=== PATIENT | male | born 1990 | race African-American/Black ===

== ENCOUNTER 2020-11-07 00:27 | Inpatient (IN) | payer OTHER ==
[2020-11-07] VITALS (8 sets, daily range): BP systolic 175–223; BP diastolic 115–140
[~2020-11-07] VITALS: Ht 180.3 cm; Wt 147.1 kg
--- NOTE | 2020-11-07 00:53 | PHYS DOC ---
Past Medical History Additional Past Medical Histor: obesity General Adult HPI: HPI: Patient is a 29 year old male with history of obesity who presents with chest pain starting roughly 25 minutes prior to arrival. Patient was getting out of his car and had left-sided chest pain. Sharp. Radiates to the left shoulder. Is not exertional or pleuritic. Not associated with shortness of breath, nausea/vomiting, or diaphoresis. States that he was sweating, but this was due to the heat of the weather. He has never had similar symptoms in the past. No fever/chills, sick contacts. No lower extremity swelling, pain, or redness. No recent surgeries or immobilizations. Is not on any medications currently. Denies any known history of HTN, HLD, DM. No early family history of coronary artery disease to his knowledge. Review of Systems: Review of Systems: Constitutional: Denies fever or chills. [] Eyes: Denies change in visual acuity. [] HENT: Denies nasal congestion or sore throat. [] Respiratory: Denies cough or shortness of breath. [] Cardiovascular: + chest pain. no edema. [] GI: Denies abdominal pain, nausea, vomiting, bloody stools or diarrhea. [] : Denies dysuria. [] Musculoskeletal: Denies back pain or joint pain. [] Integument: Denies rash. [] Neurologic: Denies headache, focal weakness or sensory changes. [] Endocrine: Denies polyuria or polydipsia. [] Lymphatic: Denies swollen glands. [] Psychiatric: Denies depression or anxiety. [] Heart Score: C/O Chest Pain: Yes HEART Score for Chest Pain: HEART Score for Chest Pain Response (Comments) Value History Slighlty/Non-Suspicious 0 ECG Nonspecific Repolarizatio 1 Age < 45 0 Risk Factors 1 or 2 Risk Factors 1 Total 2 Risk Factors: Risk Factors: DM, Current or recent (<one month) smoker, HTN, HLP, family history of CAD, obesity. Risk Scores: Score 0 - 3: 2.5% MACE over next 6 weeks - Discharge Home Score 4 - 6: 20.3% MACE over next 6 weeks - Admit for Clinical Observation Score 7 - 10: 72.7% MACE over next 6 weeks - Early Invasive Strategies Family History: Family History: No pertinent family history. No early history of CAD. Physical Exam: PE: Constitutional: Mildly diaphoretic. Well developed, well nourished, no acute distress, non-toxic appearance. [] HENT: Normocephalic, atraumatic, bilateral external ears normal, oropharynx moist, no oral exudates, nose normal. [] Eyes: PERRLA, EOMI, conjunctiva normal, no discharge. [] Neck: Normal range of motion, no tenderness, supple, no stridor. [] Cardiovascular: Tachycardic. Regular rhythm, no murmur [] Lungs & Thorax: Bilateral breath sounds clear to auscultation [] Abdomen: Bowel sounds normal, soft, no tenderness, no masses, no pulsatile masses. [] Skin: Warm, no erythema, no rash. [] Back: No tenderness, no CVA tenderness. [] Extremities: No tenderness, no cyanosis, no clubbing, ROM intact, no edema. [] Neurologic: Alert and oriented X 3, normal motor function, normal sensory function, no focal deficits noted. [] Psychologic: Affect normal, judgement normal, mood normal. [] EKG: EKG: Sinus rhythm. Rate 110. T wave inversions in 1 and aVL. Biphasic T waves in V6. No acute ST elevation or depression noted. [] Radiology/Procedures: Radiology/Procedures: CXR [] Impression: [facility] [address] [place] [address] IMAGING REPORT Signed PATIENT: IRIS SPEARS ACCOUNT: [id number] : 01/23/1959 LOCATION: ER AGE: 61 SEX: M EXAM STATUS: PRE ER ORD. PHYSICIAN: XIOMARA SAN MD REASON: shortness of breath, volume overload PROCEDURE: CHEST AP ONLY EXAMINATION: Chest radiograph. VIEWS: Single view COMPARISON: None INDICATION:61 years, Male, shortness of breath. FINDINGS: Cardiomegaly. Pulmonary vascular congestion, without overt edema. Small right pleural effusion with right basilar airspace opacity. Subsegmental atelectasis in the left lung base. No pneumothorax. No acute osseous process. IMPRESSION: 1. Cardiomegaly with pulmonary vascular congestion. 2. Small right pleural effusion with right basilar airspace opacity, suggesting of atelectatic changes versus infiltrates. Electronically signed by: Veronica Godinez MD (11/07/2020 12:34 AM) [facility] DICTATED and SIGNED BY: VERONICA GODINEZ MD DATE: 11/07/20 [id number] Course & Med Decision Making: Course & Med Decision Making Pertinent Labs and Imaging studies reviewed. (See chart for details) Patient is a 29-year-old male with history of obesity who presents with acute onset of sharp chest pain radiating to his left arm approximately 25 minutes prior to arrival. On arrival is tachycardic to 110, BP stable. Satting well on room air. Mildly diaphoretic on exam, but coming in from the hot weather. Otherwise well-appearing. EKG with T wave inversions in 1 and aVL, and biphasic T waves in V6 raising concern for ischemia. Prior to troponin heart score is 2. We will check serial troponins to evaluate for ACS. Will check chest x-ray for signs of pneumothorax, pneumonia etc although these seem less likely. Given his tachycardia will check a dimer to evaluate for PE. 0053 Initial troponin elevated to 0.124. Creatinine also elevated to 1.7. Will give IVF, NTG, and ASA 324 mg. Consult placed to cardiology. Dimer still pending at this time. 0145 Repeat EKG shows or convincing ST depressions in 1 and aVL and biphasic T waves extending into V5 more prominent in V6. Still no evidence of STEMI. We will swab for Covid. Discussed with Dr. Benítez of cardiology, who recommends IV heparin infusion, which was ordered. Awaiting remainder of labs. 0153 Dimer +. CTA ordered to eval for PE. 0219 CTA without PE. Does show groundglass opacities bilaterally. Rapid Covid swab is negative, but patient will remain a PUI until PCR is available. 0332 Dragon Disclaimer: Dragon Disclaimer: This electronic medical record was generated, in whole or in part, using a voice recognition dictation system. Departure Departure Impression: Primary Impression: Chest pain Additional Impressions: NSTEMI (non-ST elevated myocardial infarction) Ground glass opacity present on imaging of lung Disposition: ADMITTED INPATIENT Admitting Physician: FATIMAH Maddox) Condition: STABLE XIOMARA SNA MD Nov 07, 2020 00:53
--- NOTE | 2020-11-07 00:58 | EKG ---
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
[2020-11-07 01:20] LABS: BASO # 0.1 x10^3/uL (0.0-0.2); BASO % 1 % (0-3); EOS # 0.1 x10^3/uL (0.0-0.7); EOS % 1 % (0-3); HEMATOCRIT 45.2 % (39.0-53.0); HEMOGLOBIN 14.6 g/dL (13.0-17.5); LYMPH # 2.8 x10^3/uL (1.0-4.8); LYMPH % 25 % (24-48); MEAN CORPUSCULAR HEMOGLOBIN 26 pg (25-35); MEAN CORPUSCULAR HGB CONC 32 g/dL (31-37); MEAN CORPUSCULAR VOLUME 81 fL (79-100); MONO # 0.7 x10^3/uL (0.0-1.1); MONO % 6 % (0-9); NEUT # 7.4 x10^3/uL (1.8-7.7); NEUT % 67 % (31-73); PLATELET COUNT 333 x10^3/uL (140-400); RED CELL DISTRIBUTION WIDTH 14.2 % (11.5-14.5); WHITE BLOOD COUNT 11.1 x10^3/uL (4.0-11.0)
[2020-11-07 01:27] LABS: CALCIUM 9.3 mg/dL (8.5-10.1); CREATININE 1.7 mg/dL (0.7-1.3); GFR 47.9; POTASSIUM 4.1 mmol/L (3.5-5.1)
[2020-11-07 01:33] LABS: ALBUMIN 3.7 g/dL (3.4-5.0); TOTAL BILIRUBIN 1.3 mg/dL (0.2-1.0); TOTAL PROTEIN 7.5 g/dL (6.4-8.2)
--- NOTE | 2020-11-07 01:34 | RAD ---
EXAMINATION: Chest radiograph. VIEWS: Single view COMPARISON: None INDICATION:29 years, Male, chest pain. FINDINGS: Normal cardiomediastinal silhouette. Bilateral perihilar and basilar subtle opacities. No pleural eff usion or pneumothorax. No acute osseous process. IMPRESSION: Bilateral perihilar and basilar subtle opacities. Differential includes atypical pneumonia versus ate lectatic changes. Electronically signed by: Lacho Godinez MD (11/07/2020 1:31 AM) [facility]
[2020-11-07] MEDS ORDERED: NITROGLYCERIN SUBLINGUAL 0.4 MG BOTTLE OF 25. SL PRN (01:45)
--- NOTE | 2020-11-07 01:59 | EKG ---
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
[2020-11-07] MEDS ORDERED: HEPARIN for IV BOLUS 10,000 UNIT/10 ML VIAL. IV PRN (02:00)
[2020-11-07] MEDS ORDERED: ANTI-COAG MONITOR BY PHARMACY. MC PRN (02:00)
[2020-11-07] MEDS ORDERED: ASPIRIN CHEWABLE 81 MG TABLET. PO ONE (02:00)
[2020-11-07] MEDS ORDERED: HEPARIN for IV BOLUS 10,000 UNIT/10 ML VIAL. IV ONE (02:30)
[2020-11-07] MEDS: HEPARIN 25,000UTS/250ML PREMIX 250 ML IV PRN ×2 (02:41→14:30)
[2020-11-07] MEDS ORDERED: CONTRAST GIVEN. MC PRN (02:45)
[2020-11-07] MEDS ORDERED: IOHEXOL 350 MG/ML 100 ML VIAL. IV ONE (03:00)
--- NOTE | 2020-11-07 03:20 | RAD ---
EXAMINATION: CTA Chest With IV contrast INDICATION:29 years, Male, chest pain and elevated d-dimer, evaluate for pulmonary embolism. COMPARISON: None. TECHNIQUE: Spiral CTA was obtained from the jugular notch through the posterior costophrenic recess. 3-D MIPS, sagittal and coronal reformats were obtained. Exposure: One or more of the following individualized dose reduction techniques were utilized for thi s examination: 1. Automated exposure control 2. Adjustment of the mA and/or kV according to patient size 3. Use of iterative reconstruction technique. FINDINGS: LUNGS/PLEURA: Central airways are patent. Left worst than right, lower lobes groundglass opacities. M ultifocal patchy areas of groundglass opacities in the right upper and middle lobes. Tree-in-bud nodu larities in the right upper lobe. Mild interlobular septal thickening in the lower lobes. No pleural effusion or pneumothorax. MEDIASTINUM: Prominent mediastinal and right hilar lymph nodes, likely reactive. The thoracic aorta a nd pulmonary arteries are normal in caliber. No evidence of pulmonary embolism. The heart is normal i n size. No pericardial effusion. No detectable calcified coronary atherosclerosis. The visualized thy roid and the esophagus are unremarkable. AXILLA/SOFT TISSUE: No supraclavicular or axillary adenopathy. Regional soft tissues are within lexa l limits. UPPER ABDOMEN: The visualized upper abdomen appears unremarkable. BONES: No evidence of acute fractures or aggressive osseous lesions. IMPRESSION: 1. No evidence of pulmonary embolism. 2. Left worst than right, lower lobes groundglass opacities with interlobular septal thickening. Joce tional, multifocal patchy areas of groundglass opacities in the right upper and middle lobes. Overall findings suggesting of pulmonary edema versus multifocal pneumonias. Clinical correlation is advised . Electronically signed by: Lacho Godinez MD (11/07/2020 3:17 AM) [facility]
[2020-11-07] MEDS: METOPROLOL IV PUSH 5 MG/5 ML VIAL. IVP PRN ×3 (05:54→18:18)
--- NOTE | 2020-11-07 06:24 | EKG ---
[facility] [address] [place] [address] Test Date: 2020-11-07 Test Time: 00:33:52 Pat Name: KIRILL GRANDE Department: Room: 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
--- NOTE | 2020-11-07 08:27 | PDOC1 ---
History and Physical Date of Admission Date of Admission DATE: 11/07/20 TIME: 08:24 Source Source: Chart review, Patient History of Present Illness History of Present Illness Mr. Mason, is a 29-year-old male admit with acute chest pain last night he was droppign off his daughter, age 7 at her mothers house, , then driving home and had severe acute chest pain. was 9/10 pain, beter now, pain to left chest radiate to arm and maybe neck. better now was tachy and has some flat EKG change, t wave inversions heart score is 2. small troponin increase noted, will admit CT angio neg for PE Past Medical History Past Medical History had not seen a doctor Cardiovascular: No pertinent hx, Other (probable longstanding htn, ) Pulmonary: No pertinent hx Rheumatologic: Fibromyalgia Infectious disease: No pertinent hx Social History Smoke: No ALCOHOL: rare Drugs: None Current Problem List Problem List Problems Medical Problems: (1) Chest pain Status: Acute (2) Ground glass opacity present on imaging of lung Status: Acute (3) NSTEMI (non-ST elevated myocardial infarction) Status: Acute Current Medications Current Medications Current Medications Nitroglycerin (Nitrostat) 0.4 mg PRN Q5MIN PRN SL CHEST PAIN Last administered on 11/07/20at 01:57; Start 11/07/20 at 01:45 Aspirin (Aspirin Chewable) 324 mg 1X ONCE PO Last administered on 11/07/20at 01:57; Start 11/07/20 at 02:00; Stop 11/07/20 at 02:01; Status DC Heparin Sodium (Porcine) (Heparin Sodium) 4,000 unit 1X ONCE IV Last a dministered on 11/07/20at 02:29; Start 11/07/20 at 02:30; Stop 11/07/20 at 02:31; Status DC Heparin Sodium/ Dextrose 250 ml @ 0 mls/hr CONT PRN IV PER PROTOCOL Last administered on 11/07/20at 02:41; Start 11/07/20 at 02:00 Heparin Sodium (Porcine) (Heparin Sodium) 3,150 unit PRN Q6HRS PRN IV FOR UFH LEVEL LESS THAN 0.2; Start 11/07/20 at 02:00 Info (Anti-Coagulation Monitoring By Pharmacy) 1 each PRN DAILY PRN MC PER PROTOCOL Last administered on 11/07/20at 05:12; Start 11/07/20 at 02:00 Iohexol (Omnipaque 350 Mg/ml) 80 ml 1X ONCE IV Last administered on 11/07/20at 03:04; Start 11/07/20 at 03:00; Stop 11/07/20 at 03:01; Status DC Info (CONTRAST GIVEN -- Rx MONITORING) 1 each PRN DAILY PRN MC SEE COMMENTS; Start 11/07/20 at 02:45; Stop 11/09/20 at 02:44 Metoprolol Tartrate (Lopressor Vial) 5 mg PRN Q6HRS PRN IVP SBP>180 Last administered on 11/07/20at 05:54; Start 11/07/20 at 05:00 Amlodipine Besylate (Norvasc) 10 mg DAILY PO ; Start 11/07/20 at 08:00 Active Scripts Active Reported No Known Medications Prior To Admisstion (Info) Each 1 Each MC 1X Allergies Allergies: Coded Allergies: No Known Drug Allergies (Unverified , 11/07/20) ROS General: No: Chills, Night Sweats, Fatigue, Malaise, Appetite, Other PSYCHOLOGICAL ROS: No: Anxiety, Behavioral Disorder, Concentration difficultie, Decreased libido, Depression, Disorientation, Hallucinations, Hostility, Irritablity, Memory difficulties, Mood Swings, Obsessive thoughts, Physical abuse, Sexual abuse, Sleep disturbances, Suicidal ideation, Other Eyes: No Blurry vision, No Decreased vision, No Double vision, No Dry eyes, No Excessive tearing, No Eye Pain, No Itchy Eyes, No Loss of vision, No Photophobia, No Scotomata, No Uses contacts, No Uses glasses, No Other HEENT: No: Heacaches, Visual Changes, Hearing change, Nasal congestion, Nasal discharge, Oral lesions, Sinus pain, Sore Throat, Epistaxis, Sneezing, Snoring, Tinnitus, Vertigo, Vocal changes, Other Respiratory: YES: Cough, SOB with excertion; No: Hemoptysis, Orthopnea, Pleuritic Pain, Shortness of breath, Sputum Changes, Stridor, Tachypnea, Wheezing, Other Cardiovascular: yes Chest Pain; No Palpitations, No Orthopnea, No Paroxysmal Noc. Dyspnea, No Edema, No Lt Headedness, No Other Gastrointestinal: No Nausea, No Vomiting, No Abdominal Pain, No Diarrhea, No Constipation, No Melena, No Hematochezia, No Other Musculoskeletal: No Gait Disturbance, No Joint Pain, No Joint Stiffness, No Joint Swelling, No Muscle Pain, No Muscular Weakness, No Pain In:, No Swelling In:, No Other Neurological: No Behavorial Changes, No Bowel/Bladder ControlChng, No Confusion, No Dizziness, No Gait Disturbance, No Headaches, No Impaired Coord/balance, No Memory Loss, No Numbness/Tingling, No Seizures, No Speech Problems, No Tremors, No Visual Changes, No Weakness, No Other Skin: No Dry Skin, No Eczema, No Hair Changes, No Lumps, No Mole Changes, No Mottling, No Nail Changes, No Pruritus, No Rash, No Skin Lesion Changes, No Other, No Acne Physical Exam General: Alert, Oriented X3, Cooperative, No acute distress HEENT: Atraumatic, PERRLA Lungs: Clear to auscultation Heart: S1S2, RRR Neuro: Normal gait, Normal speech, Sensation intact Psych/Mental Status: Mental status NL, Mood NL Vitals Vitals Vital Signs Date Time Temp Pulse Resp B/P (MAP) Pulse Ox O2 Delivery O2 Flow Rate FiO2 11/07/20 06:19 94 199/126 (150) Room Air 11/07/20 04:45 97.8 22 97 97.8 Labs Labs Laboratory Tests Test 11/07/20 01:05 11/07/20 02:20 White Blood Count 11.1 x10^3/uL (4.0-11.0) Red Blood Count 5.60 x10^6/uL (4.30-5.70) Hemoglobin 14.6 g/dL (13.0-17.5) Hematocrit 45.2 % (39.0-53.0) Mean Corpuscular Volume 81 fL (79-100) Mean Corpuscular Hemoglobin 26 pg (25-35) Mean Corpuscular Hemoglobin Concent 32 g/dL (31-37) Red Cell Distribution Width 14.2 % (11.5-14.5) Platelet Count 333 x10^3/uL (140-400) Neutrophils (%) (Auto) 67 % (31-73) Lymphocytes (%) (Auto) 25 % (24-48) Monocytes (%) (Auto) 6 % (0-9) Eosinophils (%) (Auto) 1 % (0-3) Basophils (%) (Auto) 1 % (0-3) Neutrophils # (Auto) 7.4 x10^3/uL (1.8-7.7) Lymphocytes # (Auto) 2.8 x10^3/uL (1.0-4.8) Monocytes # (Auto) 0.7 x10^3/uL (0.0-1.1) Eosinophils # (Auto) 0.1 x10^3/uL (0.0-0.7) Basophils # (Auto) 0.1 x10^3/uL (0.0-0.2) D-Dimer (Katlyn) 1.49 ug/mlFEU (0.00-0.50) Sodium Level 139 mmol/L (136-145) Potassium Level 4.1 mmol/L (3.5-5.1) Chloride Level 104 mmol/L (98-107) Carbon Dioxide Level 26 mmol/L (21-32) Anion Gap 9 (6-14) Blood Urea Nitrogen 19 mg/dL (8-26) Creatinine 1.7 mg/dL (0.7-1.3) Estimated GFR (Cockcroft-Gault) 47.9 BUN/Creatinine Ratio 11 (6-20) Glucose Level 113 mg/dL (70-99) Calcium Level 9.3 mg/dL (8.5-10.1) Total Bilirubin 1.3 mg/dL (0.2-1.0) Aspartate Amino Transf (AST/SGOT) 29 U/L (15-37) Alanine Aminotransferase (ALT/SGPT) 38 U/L (16-63) Alkaline Phosphatase 110 U/L (46-116) Troponin I Quantitative 0.124 ng/mL (0.000-0.055) Total Protein 7.5 g/dL (6.4-8.2) Albumin 3.7 g/dL (3.4-5.0) Albumin/Globulin Ratio 1.0 (1.0-1.7) SARS-CoV-2 Antigen (Rapid) Negative (NEGATIVE) Laboratory Tests Test 11/07/20 01:05 11/07/20 02:20 White Blood Count 11.1 x10^3/uL (4.0-11.0) Red Blood Count 5.60 x10^6/uL (4.30-5.70) Hemoglobin 14.6 g/dL (13.0-17.5) Hematocrit 45.2 % (39.0-53.0) Mean Corpuscular Volume 81 fL (79-100) Mean Corpuscular Hemoglobin 26 pg (25-35) Mean Corpuscular Hemoglobin Concent 32 g/dL (31-37) Red Cell Distribution Width 14.2 % (11.5-14.5) Platelet Count 333 x10^3/uL (140-400) Neutrophils (%) (Auto) 67 % (31-73) Lymphocytes (%) (Auto) 25 % (24-48) Monocytes (%) (Auto) 6 % (0-9) Eosinophils (%) (Auto) 1 % (0-3) Basophils (%) (Auto) 1 % (0-3) Neutrophils # (Auto) 7.4 x10^3/uL (1.8-7.7) Lymphocytes # (Auto) 2.8 x10^3/uL (1.0-4.8) Monocytes # (Auto) 0.7 x10^3/uL (0.0-1.1) Eosinophils # (Auto) 0.1 x10^3/uL (0.0-0.7) Basophils # (Auto) 0.1 x10^3/uL (0.0-0.2) D-Dimer (Katlyn) 1.49 ug/mlFEU (0.00-0.50) Sodium Level 139 mmol/L (136-145) Potassium Level 4.1 mmol/L (3.5-5.1) Chloride Level 104 mmol/L (98-107) Carbon Dioxide Level 26 mmol/L (21-32) Anion Gap 9 (6-14) Blood Urea Nitrogen 19 mg/dL (8-26) Creatinine 1.7 mg/dL (0.7-1.3) Estimated GFR (Cockcroft-Gault) 47.9 BUN/Creatinine Ratio 11 (6-20) Glucose Level 113 mg/dL (70-99) Calcium Level 9.3 mg/dL (8.5-10.1) Total Bilirubin 1.3 mg/dL (0.2-1.0) Aspartate Amino Transf (AST/SGOT) 29 U/L (15-37) Alanine Aminotransferase (ALT/SGPT) 38 U/L (16-63) Alkaline Phosphatase 110 U/L (46-116) Troponin I Quantitative 0.124 ng/mL (0.000-0.055) Total Protein 7.5 g/dL (6.4-8.2) Albumin 3.7 g/dL (3.4-5.0) Albumin/Globulin Ratio 1.0 (1.0-1.7) SARS-CoV-2 Antigen (Rapid) Negative (NEGATIVE) Images Images Repeat EKG shows or convincing ST depressions in 1 and aVL and biphasic T waves extending into V5 more prominent in V6. Still no evidence of STEMI. We will swab for Covid. Discussed with Dr. Benítez of cardiology, who recommends IV heparin infusion, which was ordered. Awaiting remainder of labs. 0153 VTE Prophylaxis Ordered VTE Prophylaxis Devices: No VTE Pharmacological Prophylaxi: Yes Assessment/Plan Assessment/Plan Acute chest pain, r/o ACS accelerated htn, norvasc given, hydralazine, start metoprolol, check UDS for contraindicated Initial troponin elevated to 0.124. prob type 2 demand ischemi Creatinine also elevated to 1.7. baseline unknown, contrast given for CT, will hydrate as might need cardiac cath obese, BMI 46 Will give IVF, NTG, and ASA 324 mg. Justifications for Admission Other Justification BANDAR GUSMAN MD Nov 07, 2020 08:27
[2020-11-07 09:06] LABS: BARBITURATES NEG (NEG); BENZODIAZEPINES NEG (NEG); CANNABINOIDS NEG (NEG); COCAINE NEG (NEG); METHADONE NEG (NEG); OPIATES NEG (NEG); PHENCYCLIDINE NEG (NEG)
[2020-11-07 09:16] LABS: BILIRUBIN,URINE NEGATIVE (NEG); CLARITY,URINE CLEAR; COLOR,URINE YELLOW; NITRITE,URINE NEGATIVE (NEG); PROTEIN,URINE 100 mg/dL (NEG-TRACE)
[2020-11-07 09:30] LABS: AMPHETAMINE/METHAMPHETAMINE NEG (NEG)
[2020-11-07 09:58] LABS: BACTERIA,URINE 0 /HPF (0-FEW); RBC,URINE 0 /HPF (0-2); WBC,URINE 0 /HPF (0-4)
[2020-11-07] MEDS ORDERED: IV NORMAL SALINE 1000ML BAG 1,000 ML IV ONE (12:30)
[2020-11-07] MEDS: ACETAMINOPHEN 325 MG TABLET. PO PRN ×2 (15:50→22:16)
[2020-11-07] MEDS ORDERED: IBUPROFEN 200 MG TABLET. PO ONE (16:30)
--- NOTE | 2020-11-07 16:30 | PDOC2 ---
CONSULT Date of Consult Date of Consult DATE: 11/07/20 TIME: 16:24 Reason for Consult Reason for Consult: Chest pain Referring Physician Referring Physician: Dr. Logan Identification/Chief Complaint Chief Complaint Chest pain Source Source: Chart review, Patient History of Present Illness Reason for Visit: 29-year-old male without any previous cardiac history apparently was getting out of his car after dropping off his daughter when he had left-sided chest pain, 9/10 severity associated with left arm pain. He denied any orthopnea/PND, palpitations or syncope. He did not receive any Covid vaccination and his Covid test has been negative. He was found to have elevated troponin level and accelerated hypertension and admitted for further management. He denied any prior history of hypertension and is not on any medications at home. He denied any drug abuse or family history of coronary artery disease.. Past Medical History Cardiovascular: No pertinent hx, Other (probable longstanding htn, ) Pulmonary: No pertinent hx Rheumatologic: Fibromyalgia Infectious disease: No pertinent hx Social History No ALCOHOL: rare Drugs: None Current Problem List Problem List Problems Medical Problems: (1) Chest pain Status: Acute (2) Ground glass opacity present on imaging of lung Status: Acute (3) NSTEMI (non-ST elevated myocardial infarction) Status: Acute Current Medications Current Medications Current Medications Nitroglycerin (Nitrostat) 0.4 mg PRN Q5MIN PRN SL CHEST PAIN Last administered on 11/07/20at 01:57; Start 11/07/20 at 01:45 Aspirin (Aspirin Chewable) 324 mg 1X ONCE PO Last administered on 11/07/20at 01:57; Start 11/07/20 at 02:00; Stop 11/07/20 at 02:01; Status DC Heparin Sodium (Porcine) (Heparin Sodium) 4,000 unit 1X ONCE IV Last administered on 11/07/20at 02:29; Start 11/07/20 at 02:30; Stop 11/07/20 at 02:31; Status DC Heparin Sodium/ Dextrose 250 ml @ 0 mls/hr CONT PRN IV PER PROTOCOL Last admini stered on 11/07/20at 14:30; Start 11/07/20 at 02:00 Heparin Sodium (Porcine) (Heparin Sodium) 3,150 unit PRN Q6HRS PRN IV FOR UFH LEVEL LESS THAN 0.2; Start 11/07/20 at 02:00 Info (Anti-Coagulation Monitoring By Pharmacy) 1 each PRN DAILY PRN MC PER PROTOCOL Last administered on 11/07/20at 05:12; Start 11/07/20 at 02:00 Iohexol (Omnipaque 350 Mg/ml) 80 ml 1X ONCE IV Last administered on 11/07/20at 03:04; Start 11/07/20 at 03:00; Stop 11/07/20 at 03:01; Status DC Info (CONTRAST GIVEN -- Rx MONITORING) 1 each PRN DAILY PRN MC SEE COMMENTS; Start 11/07/20 at 02:45; Stop 11/09/20 at 02:44 Metoprolol Tartrate (Lopressor Vial) 5 mg PRN Q6HRS PRN IVP SBP>180 Last administered on 11/07/20at 11:04; Start 11/07/20 at 05:00 Amlodipine Besylate (Norvasc) 10 mg DAILY PO Last administered on 11/07/20at 08:32; Start 11/07/20 at 08:00 Sodium Chloride 1,000 ml @ 100 mls/hr 1X ONCE IV Last administered on 11/07/20at 14:16; Start 11/07/20 at 12:30; Stop 11/07/20 at 22:29 Hydralazine HCl (Apresoline) 50 mg TID PO Last administered on 11/07/20at 14:13; Start 11/07/20 at 14:00 Acetaminophen (Tylenol) 650 mg PRN Q6HRS PRN PO MILD PAIN / TEMP > 100.3'F Last administered on 11/07/20at 15:50; Start 11/07/20 at 15:45 Ibuprofen (Motrin) 600 mg 1X ONCE PO ; Start 11/07/20 at 16:30; Stop 11/07/20 at 16:31 Active Scripts Active Reported No Known Medications Prior To Admisstion (Info) Each 1 Each MC 1X Allergies Allergies: Coded Allergies: No Known Drug Allergies (Unverified , 11/07/20) ROS PSYCHOLOGICAL ROS: No: Hallucinations Eyes: No Loss of vision HEENT: No: Epistaxis Respiratory: No: Orthopnea Cardiovascular: yes Chest Pain Gastrointestinal: No Vomiting Genitourinary: No Hematuria Neurological: No Seizures Skin: No Rash Physical Exam General: Alert, Oriented X3 HEENT: Atraumatic Lungs: Clear to auscultation Heart: Regular rate Abdomen: Soft Extremities: No edema Psych/Mental Status: Mood NL Vitals VITALS Vital Signs Date Time Temp Pulse Resp B/P (MAP) Pulse Ox O2 Delivery O2 Flow Rate FiO2 11/07/20 14:13 106 214/105 11/07/20 11:00 97.9 20 94 Room Air 97.9 Labs Labs Laboratory Tests Test 11/07/20 01:05 11/07/20 02:20 11/07/20 08:45 11/07/20 09:35 White Blood Count 11.1 x10^3/uL (4.0-11.0) Red Blood Count 5.60 x10^6/uL (4.30-5.70) Hemoglobin 14.6 g/dL (13.0-17.5) Hematocrit 45.2 % (39.0-53.0) Mean Corpuscular Volume 81 fL (79-100) Mean Corpuscular Hemoglobin 26 pg (25-35) Mean Corpuscular Hemoglobin Concent 32 g/dL (31-37) Red Cell Distribution Width 14.2 % (11.5-14.5) Platelet Count 333 x10^3/uL (140-400) Neutrophils (%) (Auto) 67 % (31-73) Lymphocytes (%) (Auto) 25 % (24-48) Monocytes (%) (Auto) 6 % (0-9) Eosinophils (%) (Auto) 1 % (0-3) Basophils (%) (Auto) 1 % (0-3) Neutrophils # (Auto) 7.4 x10^3/uL (1.8-7.7) Lymphocytes # (Auto) 2.8 x10^3/uL (1.0-4.8) Monocytes # (Auto) 0.7 x10^3/uL (0.0-1.1) Eosinophils # (Auto) 0.1 x10^3/uL (0.0-0.7) Basophils # (Auto) 0.1 x10^3/uL (0.0-0.2) D-Dimer (Katlyn) 1.49 ug/mlFEU (0.00-0.50) Sodium Level 139 mmol/L (136-145) Potassium Level 4.1 mmol/L (3.5-5.1) Chloride Level 104 mmol/L (98-107) Carbon Dioxide Level 26 mmol/L (21-32) Anion Gap 9 (6-14) Blood Urea Nitrogen 19 mg/dL (8-26) Creatinine 1.7 mg/dL (0.7-1.3) Estimated GFR (Cockcroft-Gault) 47.9 BUN/Creatinine Ratio 11 (6-20) Glucose Level 113 mg/dL (70-99) Calcium Level 9.3 mg/dL (8.5-10.1) Total Bilirubin 1.3 mg/dL (0.2-1.0) Aspartate Amino Transf (AST/SGOT) 29 U/L (15-37) Alanine Aminotransferase (ALT/SGPT) 38 U/L (16-63) Alkaline Phosphatase 110 U/L (46-116) Troponin I Quantitative 0.124 ng/mL (0.000-0.055) 1.766 ng/mL (0.000-0.055) Total Protein 7.5 g/dL (6.4-8.2) Albumin 3.7 g/dL (3.4-5.0) Albumin/Globulin Ratio 1.0 (1.0-1.7) SARS-CoV-2 RNA (MARY) Negative (Negative) SARS-CoV-2 Antigen (Rapid) Negative (NEGATIVE) Urine Collection Type Unknown Urine Color Yellow Urine Clarity Clear Urine pH 6.0 (<5.0-8.0) Urine Specific Sumner >=1.030 (1.000-1.030) Urine Protein 100 mg/dL (NEG-TRACE) Urine Glucose (UA) Negative mg/dL (NEG) Urine Ketones (Stick) Negative mg/dL (NEG) Urine Blood Trace (NEG) Urine Nitrite Negative (NEG) Urine Bilirubin Negative (NEG) Urine Urobilinogen Dipstick 1.0 mg/dL (0.2 mg/dL) Urine Leukocyte Esterase Negative (NEG) Urine RBC 0 /HPF (0-2) Urine WBC 0 /HPF (0-4) Urine Squamous Epithelial Cells Few /LPF Urine Bacteria 0 /HPF (0-FEW) Urine Opiates Screen Neg (NEG) Urine Methadone Screen Neg (NEG) Urine Barbiturates Neg (NEG) Urine Phencyclidine Screen Neg (NEG) Urine Amphetamine/Methamphetamine Neg (NEG) Urine Benzodiazepines Screen Neg (NEG) Urine Cocaine Screen Neg (NEG) Urine Cannabinoids Screen Neg (NEG) Urine Ethyl Alcohol Neg (NEG) Heparin Anti-Xa Act, Unfractionated 0.24 IU/mL (0.30-0.70) Test 11/07/20 12:45 Troponin I Quantitative 1.818 ng/mL (0.000-0.055) Laboratory Tests Test 11/07/20 01:05 11/07/20 02:20 11/07/20 08:45 11/07/20 09:35 White Blood Count 11.1 x10^3/uL (4.0-11.0) Red Blood Count 5.60 x10^6/uL (4.30-5.70) Hemoglobin 14.6 g/dL (13.0-17.5) Hematocrit 45.2 % (39.0-53.0) Mean Corpuscular Volume 81 fL (79-100) Mean Corpuscular Hemoglobin 26 pg (25-35) Mean Corpuscular Hemoglobin Concent 32 g/dL (31-37) Red Cell Distribution Width 14.2 % (11.5-14.5) Platelet Count 333 x10^3/uL (140-400) Neutrophils (%) (Auto) 67 % (31-73) Lymphocytes (%) (Auto) 25 % (24-48) Monocytes (%) (Auto) 6 % (0-9) Eosinophils (%) (Auto) 1 % (0-3) Basophils (%) (Auto) 1 % (0-3) Neutrophils # (Auto) 7.4 x10^3/uL (1.8-7.7) Lymphocytes # (Auto) 2.8 x10^3/uL (1.0-4.8) Monocytes # (Auto) 0.7 x10^3/uL (0.0-1.1) Eosinophils # (Auto) 0.1 x10^3/uL (0.0-0.7) Basophils # (Auto) 0.1 x10^3/uL (0.0-0.2) D-Dimer (Katlyn) 1.49 ug/mlFEU (0.00-0.50) Sodium Level 139 mmol/L (136-145) Potassium Level 4.1 mmol/L (3.5-5.1) Chloride Level 104 mmol/L (98-107) Carbon Dioxide Level 26 mmol/L (21-32) Anion Gap 9 (6-14) Blood Urea Nitrogen 19 mg/dL (8-26) Creatinine 1.7 mg/dL (0.7-1.3) Estimated GFR (Cockcroft-Gault) 47.9 BUN/Creatinine Ratio 11 (6-20) Glucose Level 113 mg/dL (70-99) Calcium Level 9.3 mg/dL (8.5-10.1) Total Bilirubin 1.3 mg/dL (0.2-1.0) Aspartate Amino Transf (AST/SGOT) 29 U/L (15-37) Alanine Aminotransferase (ALT/SGPT) 38 U/L (16-63) Alkaline Phosphatase 110 U/L (46-116) Troponin I Quantitative 0.124 ng/mL (0.000-0.055) 1.766 ng/mL (0.000-0.055) Total Protein 7.5 g/dL (6.4-8.2) Albumin 3.7 g/dL (3.4-5.0) Albumin/Globulin Ratio 1.0 (1.0-1.7) SARS-CoV-2 RNA (MARY) Negative (Negative) SARS-CoV-2 Antigen (Rapid) Negative (NEGATIVE) Urine Collection Type Unknown Urine Color Yellow Urine Clarity Clear Urine pH 6.0 (<5.0-8.0) Urine Specific Sumner >=1.030 (1.000-1.030) Urine Protein 100 mg/dL (NEG-TRACE) Urine Glucose (UA) Negative mg/dL (NEG) Urine Ketones (Stick) Negative mg/dL (NEG) Urine Blood Trace (NEG) Urine Nitrite Negative (NEG) Urine Bilirubin Negative (NEG) Urine Urobilinogen Dipstick 1.0 mg/dL (0.2 mg/dL) Urine Leukocyte Esterase Negative (NEG) Urine RBC 0 /HPF (0-2) Urine WBC 0 /HPF (0-4) Urine Squamous Epithelial Cells Few /LPF Urine Bacteria 0 /HPF (0-FEW) Urine Opiates Screen Neg (NEG) Urine Methadone Screen Neg (NEG) Urine Barbiturates Neg (NEG) Urine Phencyclidine Screen Neg (NEG) Urine Amphetamine/Methamphetamine Neg (NEG) Urine Benzodiazepines Screen Neg (NEG) Urine Cocaine Screen Neg (NEG) Urine Cannabinoids Screen Neg (NEG) Urine Ethyl Alcohol Neg (NEG) Heparin Anti-Xa Act, Unfractionated 0.24 IU/mL (0.30-0.70) Test 11/07/20 12:45 Troponin I Quantitative 1.818 ng/mL (0.000-0.055) Assessment/Plan Assessment/Plan 1. Non-STEMI. He is presently chest pain-free. His troponin level is elevated at 1.8. This could be secondary to demand ischemia from uncontrolled hypertension but due to the significant level of troponin elevation, ischemic etiology needs to be ruled out. Continue heparin infusion per protocol and plan for cardiac catheterization on Monday. We will also check 2D echo to assess LV systolic function. 2. Accelerated hypertension: Blood pressure continues to be elevated despite starting Norvasc. Agree with adding hydralazine for better control. Will obtain renal arterial duplex scan to rule out fibromuscular dysplasia. 3. Acute kidney injury, most probably from uncontrolled hypertension. Creatinine level 1.7. Treat per primary team. Thank you for your consultation JORGE LOERA MD Nov 07, 2020 16:30
[2020-11-08] VITALS (7 sets, daily range): BP systolic 177–218; BP diastolic 103–158
[2020-11-08] MEDS: METOPROLOL IV PUSH 5 MG/5 ML VIAL. IVP PRN (01:29)
[2020-11-08] MEDS: HEPARIN 25,000UTS/250ML PREMIX 250 ML IV PRN ×3 (01:41→23:00)
[2020-11-08] MEDS: LABETALOL HCL 200 MG TABLET PO SCH ×3 (05:30→20:47)
[2020-11-08 08:25] LABS: BASO # 0.1 x10^3/uL (0.0-0.2); BASO % 1 % (0-3); EOS # 0.2 x10^3/uL (0.0-0.7); EOS % 2 % (0-3); HEMATOCRIT 42.2 % (39.0-53.0); HEMOGLOBIN 14.2 g/dL (13.0-17.5); LYMPH # 2.5 x10^3/uL (1.0-4.8); LYMPH % 28 % (24-48); MEAN CORPUSCULAR HEMOGLOBIN 27 pg (25-35); MEAN CORPUSCULAR HGB CONC 34 g/dL (31-37); MEAN CORPUSCULAR VOLUME 81 fL (79-100); MONO # 0.7 x10^3/uL (0.0-1.1); MONO % 8 % (0-9); NEUT # 5.7 x10^3/uL (1.8-7.7); NEUT % 62 % (31-73); PLATELET COUNT 267 x10^3/uL (140-400); RED BLOOD COUNT 5.24 x10^6/uL (4.30-5.70); WHITE BLOOD COUNT 9.2 x10^3/uL (4.0-11.0)
[2020-11-08 08:49] LABS: ALBUMIN 2.9 g/dL (3.4-5.0); ALBUMIN/GLOBULIN RATIO 0.7 (1.0-1.7); CREATININE 1.2 mg/dL (0.7-1.3); GFR 86.6; POTASSIUM 3.2 mmol/L (3.5-5.1); TOTAL BILIRUBIN 1.6 mg/dL (0.2-1.0); TOTAL PROTEIN 6.8 g/dL (6.4-8.2)
--- NOTE | 2020-11-08 11:39 | PDOC ---
PROGRESS NOTES Date of Service: DATE: 11/08/20 TIME: 11:37 Subjective Subjective Denied any chest pain. Objective Objective Vital Signs Date Time Temp Pulse Resp B/P (MAP) Pulse Ox O2 Delivery O2 Flow Rate FiO2 11/08/20 11:00 98.2 94 18 181/111 (134) 96 Room Air 98.2 Intake and Output 11/08/20 07:00 Intake Total 1540 ml Output Total 2900 ml Balance -1360 ml Intake Oral 1290 ml IV Total 250 ml Output Urine Total 2900 ml Physical Exam Abdomen: Soft Heart: Regular rate Extremities: No edema General: Alert, Oriented X3 HEENT: Atraumatic Lungs: Clear to auscultation Neuro: Normal gait, Normal speech, Sensation intact Psych/Mental Status: Mood NL Assessment Assessment 1. Non-STEMI. He is presently chest pain-free. His troponin level is elevated at 1.8. This could be secondary to demand ischemia from uncontrolled hypertension but due to the significant level of troponin elevation, ischemic etiology needs to be ruled out. Continue heparin infusion per protocol and plan for cardiac catheterization tomorrow. We will also check 2D echo to assess LV systolic function. 2. Accelerated hypertension: Blood pressure continues to be elevated despite starting Norvasc and hydralazine. Start labetalol 200 mg twice daily. We will obtain renal arterial duplex scan to rule out fibromuscular dysplasia. 3. Acute kidney injury, creatinine level improved to 1.2 today. 4. NSVT on tele - check Mg level Plan Plan of Care Problems Medical Problems: (1) Chest pain Status: Acute (2) Ground glass opacity present on imaging of lung Status: Acute (3) NSTEMI (non-ST elevated myocardial infarction) Status: Acute Comment Review of Relevant I have reviewed the following items danae (where applicable) has been applied. Labs Laboratory Tests Test 11/07/20 12:45 11/07/20 17:20 11/07/20 23:30 11/08/20 06:10 Troponin I Quantitative 1.818 ng/mL (0.000-0.055) Heparin Anti-Xa Act, Unfractionated 0.43 IU/mL (0.30-0.70) 0.34 IU/mL (0.30-0.70) 0.38 IU/mL (0.30-0.70) White Blood Count 9.2 x10^3/uL (4.0-11.0) Red Blood Count 5.24 x10^6/uL (4.30-5.70) Hemoglobin 14.2 g/dL (13.0-17.5) Hematocrit 42.2 % (39.0-53.0) Mean Corpuscular Volume 81 fL (79-100) Mean Corpuscular Hemoglobin 27 pg (25-35) Mean Corpuscular Hemoglobin Concent 34 g/dL (31-37) Red Cell Distribution Width 14.0 % (11.5-14.5) Platelet Count 267 x10^3/uL (140-400) Neutrophils (%) (Auto) 62 % (31-73) Lymphocytes (%) (Auto) 28 % (24-48) Monocytes (%) (Auto) 8 % (0-9) Eosinophils (%) (Auto) 2 % (0-3) Basophils (%) (Auto) 1 % (0-3) Neutrophils # (Auto) 5.7 x10^3/uL (1.8-7.7) Lymphocytes # (Auto) 2.5 x10^3/uL (1.0-4.8) Monocytes # (Auto) 0.7 x10^3/uL (0.0-1.1) Eosinophils # (Auto) 0.2 x10^3/uL (0.0-0.7) Basophils # (Auto) 0.1 x10^3/uL (0.0-0.2) Sodium Level 137 mmol/L (136-145) Potassium Level 3.2 mmol/L (3.5-5.1) Chloride Level 104 mmol/L (98-107) Carbon Dioxide Level 22 mmol/L (21-32) Anion Gap 11 (6-14) Blood Urea Nitrogen 13 mg/dL (8-26) Creatinine 1.2 mg/dL (0.7-1.3) Estimated GFR (Cockcroft-Gault) 86.6 BUN/Creatinine Ratio 11 (6-20) Glucose Level 84 mg/dL (70-99) Calcium Level 9.0 mg/dL (8.5-10.1) Total Bilirubin 1.6 mg/dL (0.2-1.0) Aspartate Amino Transf (AST/SGOT) 29 U/L (15-37) Alanine Aminotransferase (ALT/SGPT) 27 U/L (16-63) Alkaline Phosphatase 92 U/L (46-116) Total Protein 6.8 g/dL (6.4-8.2) Albumin 2.9 g/dL (3.4-5.0) Albumin/Globulin Ratio 0.7 (1.0-1.7) Medications Current Medications Acetaminophen (Tylenol) 650 mg PRN Q6HRS PRN PO MILD PAIN / TEMP > 100.3'F Last administered on 11/07/20at 22:16; Start 11/07/20 at 15:45 Hydralazine HCl (Apresoline) 50 mg TID PO Last administered on 11/08/20at 09:41; Start 11/07/20 at 14:00 Ibuprofen (Motrin) 600 mg 1X ONCE PO ; Start 11/07/20 at 16:30; Stop 11/07/20 at 16:31; Status DC Labetalol HCl (Trandate) 200 mg BID PO Last administered on 11/08/20at 05:30; Start 11/08/20 at 04:45 Potassium Chloride (Klor-Con) 20 meq DAILYWBKFT PO ; Start 11/09/20 at 08:00 Potassium Chloride (Klor-Con) 40 meq 1X ONCE PO ; Start 11/08/20 at 11:45; Stop 11/08/20 at 11:46 Sodium Chloride 1,000 ml @ 100 mls/hr 1X ONCE IV Last administered on 11/07/20at 14:16; Start 11/07/20 at 12:30; Stop 11/07/20 at 22:29; Status DC Vitals/I & O Vital Sign - Last 24 Hours 11/07/20 11/07/20 11/07/20 11/07/20 14:13 15:00 18:18 19:30 Temp 97.7 98.7 97.7 98.7 Pulse 106 106 97 99 Resp 18 18 B/P (MAP) 214/105 175/116 (135) 196/137 207/140 (162) Pulse Ox 94 95 O2 Delivery Nasal Cannula Room Air 11/07/20 11/07/20 11/07/20 11/08/20 20:00 22:15 23:00 00:49 Temp 97.7 97.7 Pulse 99 94 93 Resp 20 B/P (MAP) 207/140 206/133 (157) 191/124 (146) Pulse Ox 97 O2 Delivery Room Air Room Air 11/08/20 11/08/20 11/08/20 11/08/20 01:29 03:10 05:30 07:00 Temp 98.7 97.8 98.7 97.8 Pulse 93 83 83 84 Resp 20 18 B/P (MAP) 191/124 218/158 (178) 218/158 184/122 (142) Pulse Ox 100 95 O2 Delivery Room Air Room Air 11/08/20 11/08/20 11/08/20 11/08/20 08:00 09:40 09:41 11:00 Temp 98.2 98.2 Pulse 84 84 94 Resp 18 B/P (MAP) 184/122 184/122 181/111 (134) Pulse Ox 96 O2 Delivery Room Air Room Air Intake and Output 11/07/20 11/07/20 11/08/20 15:00 23:00 07:00 Intake Total 180 ml 1360 ml Output Total 1300 ml 500 ml 1100 ml Balance -1300 ml -320 ml 260 ml OJRGE LOERA MD Nov 08, 2020 11:39
[2020-11-08] MEDS ORDERED: POTASSIUM CHLORIDE 20 MEQ TABLET.ER. PO ONE (11:45)
--- NOTE | 2020-11-08 12:53 | PDOC ---
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 is nervous about posscath in aMA pain is better, gone he has eaten, no complaints should likely be able to DC soon Vitals/I&O Vitals/I&O: Vital Signs Date Time Temp Pulse Resp B/P (MAP) Pulse Ox O2 Delivery O2 Flow Rate FiO2 11/08/20 11:00 98.2 94 18 181/111 (134) 96 Room Air 98.2 I & O 11/07/20 11/07/20 11/08/20 15:00 23:00 07:00 Intake Total 180 ml 1360 ml Output Total 1300 ml 500 ml 1100 ml Balance -1300 ml -320 ml 260 ml Physical Exam General: Alert, Oriented X3, Cooperative Heart: Regular rate, Normal S1 Lungs: Clear Abdomen: Soft Extremities: No cyanosis, No edema Skin: No breakdown Labs Labs: Laboratory Tests Test 11/07/20 17:20 11/07/20 23:30 11/08/20 06:10 Heparin Anti-Xa Act, Unfractionated 0.43 IU/mL (0.30-0.70) 0.34 IU/mL (0.30-0.70) 0.38 IU/mL (0.30-0.70) White Blood Count 9.2 x10^3/uL (4.0-11.0) Red Blood Count 5.24 x10^6/uL (4.30-5.70) Hemoglobin 14.2 g/dL (13.0-17.5) Hematocrit 42.2 % (39.0-53.0) Mean Corpuscular Volume 81 fL (79-100) Mean Corpuscular Hemoglobin 27 pg (25-35) Mean Corpuscular Hemoglobin Concent 34 g/dL (31-37) Red Cell Distribution Width 14.0 % (11.5-14.5) Platelet Count 267 x10^3/uL (140-400) Neutrophils (%) (Auto) 62 % (31-73) Lymphocytes (%) (Auto) 28 % (24-48) Monocytes (%) (Auto) 8 % (0-9) Eosinophils (%) (Auto) 2 % (0-3) Basophils (%) (Auto) 1 % (0-3) Neutrophils # (Auto) 5.7 x10^3/uL (1.8-7.7) Lymphocytes # (Auto) 2.5 x10^3/uL (1.0-4.8) Monocytes # (Auto) 0.7 x10^3/uL (0.0-1.1) Eosinophils # (Auto) 0.2 x10^3/uL (0.0-0.7) Basophils # (Auto) 0.1 x10^3/uL (0.0-0.2) Sodium Level 137 mmol/L (136-145) Potassium Level 3.2 mmol/L (3.5-5.1) Chloride Level 104 mmol/L (98-107) Carbon Dioxide Level 22 mmol/L (21-32) Anion Gap 11 (6-14) Blood Urea Nitrogen 13 mg/dL (8-26) Creatinine 1.2 mg/dL (0.7-1.3) Estimated GFR (Cockcroft-Gault) 86.6 BUN/Creatinine Ratio 11 (6-20) Glucose Level 84 mg/dL (70-99) Calcium Level 9.0 mg/dL (8.5-10.1) Magnesium Level 2.1 mg/dL (1.8-2.4) Total Bilirubin 1.6 mg/dL (0.2-1.0) Aspartate Amino Transf (AST/SGOT) 29 U/L (15-37) Alanine Aminotransferase (ALT/SGPT) 27 U/L (16-63) Alkaline Phosphatase 92 U/L (46-116) Total Protein 6.8 g/dL (6.4-8.2) Albumin 2.9 g/dL (3.4-5.0) Albumin/Globulin Ratio 0.7 (1.0-1.7) Review of Systems Review of Systems: no nv.d Assessment and Plan Assessmemt and Plan Problems Medical Problems: (1) Chest pain Status: Acute (2) Ground glass opacity present on imaging of lung Status: Acute (3) NSTEMI (non-ST elevated myocardial infarction) Status: Acute Comment Review of Relevant I have reviewed the following items danae (where applicable) has been applied. Medications: Current Medications Medications (Trade) Dose Ordered Sig/Hernandez Route PRN Reason Start Time Stop Time Status Last Admin Dose Admin Hydralazine HCl (Apresoline) 50 mg TID PO 11/07/20 14:00 11/08/20 09:41 Acetaminophen (Tylenol) 650 mg PRN Q6HRS PRN PO MILD PAIN / TEMP > 100.3'F 11/07/20 15:45 11/07/20 22:16 Labetalol HCl (Trandate) 200 mg BID PO 11/08/20 04:45 11/08/20 05:30 Potassium Chloride (Klor-Con) 40 meq 1X ONCE PO 11/08/20 11:45 11/08/20 11:46 DC 11/08/20 12:09 Justifications for Admission Other Justification BANDAR GUSMAN MD Nov 08, 2020 12:53
[2020-11-09] VITALS (18 sets, daily range): BP systolic 141–197; BP diastolic 88–128
[2020-11-09] MEDS: METOPROLOL IV PUSH 5 MG/5 ML VIAL. IVP PRN (03:21)
[2020-11-09 07:23] LABS: BASO # 0.1 x10^3/uL (0.0-0.2); BASO % 1 % (0-3); EOS # 0.1 x10^3/uL (0.0-0.7); EOS % 2 % (0-3); HEMOGLOBIN 13.7 g/dL (13.0-17.5); LYMPH # 1.8 x10^3/uL (1.0-4.8); LYMPH % 23 % (24-48); MEAN CORPUSCULAR HEMOGLOBIN 26 pg (25-35); MEAN CORPUSCULAR HGB CONC 33 g/dL (31-37); MEAN CORPUSCULAR VOLUME 80 fL (79-100); MONO # 0.7 x10^3/uL (0.0-1.1); MONO % 8 % (0-9); NEUT # 5.3 x10^3/uL (1.8-7.7); NEUT % 66 % (31-73); PLATELET COUNT 278 x10^3/uL (140-400); RED BLOOD COUNT 5.22 x10^6/uL (4.30-5.70); RED CELL DISTRIBUTION WIDTH 14.2 % (11.5-14.5); WHITE BLOOD COUNT 7.9 x10^3/uL (4.0-11.0)
[2020-11-09 07:39] LABS: ALBUMIN/GLOBULIN RATIO 0.8 (1.0-1.7); CALCIUM 9.2 mg/dL (8.5-10.1); CREATININE 1.3 mg/dL (0.7-1.3); POTASSIUM 3.6 mmol/L (3.5-5.1); TOTAL BILIRUBIN 1.2 mg/dL (0.2-1.0); TOTAL PROTEIN 6.8 g/dL (6.4-8.2)
[2020-11-09] MEDS: LABETALOL HCL 200 MG TABLET PO SCH (08:33)
--- NOTE | 2020-11-09 08:41 | RAD ---
MR#: [id number] Date of Study: 11/08/2020 Ordering Physician: JORGE LOERA, Referring Physician: JORGE LOERA, Tech: Dharmesh Barba MBA, RDMS, RVT, RDCS, RTR APPROVED REPORT Patient Location: IN-PATIENT Indications Uncontrolled HTN Renal Artery Doppler Right Renal Artery Left Renal Arter y Proximal 66.0/15.0 cm/secProximal 54.0/15.0 cm/sec Mid 53.0/16.0 cm/secMid 66.0/16.0 cm/sec Distal 46.0/19.0 cm/secDistal 35.0/12.0 cm/sec Renal/Aorta Ratio 0.57Renal/Aorta Ratio 0.57 Prox. Resistive Index 0.78Prox. Resistive Index 0.73 Mid Resistive Index 0.71Mid Resistive Index 0.83 Distal Resistive Index 0.60Distal Resistive Index 0.67 Rt. Segmental A. 18.0/6.0 cm/secLt. Segmental A. 16.0/8.0 cm/sec Renal Measurements RightLeft Kidney Lwwwol57.3 cm cmKidney Dplggg17.1 cm cm Right Additional FindingsLeft Additional Findings Findings Grayscale images of the abdominal aorta demonstrate mild diffuse atherosclerotic plaque. The mid and distal abdominal aorta are not well visualized. Spectral waveforms and color Doppler are within normal limits. Of note, the images are technically l imited. Normal renal to aortic ratios. Critical Notification Critical Value: No <Conclusion> 1. No clear evidence of renal artery stenosis on this technically limited study. Signed by : Joel Lane, Electronically Approved : 11/09/2020 08:40:56
[2020-11-09] MEDS ORDERED: LIDOCAINE 1% PF 2 ML VIAL. ONE (10:34)
[2020-11-09] MEDS ORDERED: IODIXANOL 320 MG/ML 100 ML VIAL. ONE ×2 (10:34→11:23)
[2020-11-09] MEDS ORDERED: HEPARIN for IV BOLUS 10,000 UNIT/10 ML VIAL. ONE (10:59)
[2020-11-09] MEDS ORDERED: fentaNYL PF VIAL 100 MCG/2 ML VIAL ONE (10:59)
[2020-11-09] MEDS ORDERED: MIDAZOLAM HCL/PF 2 MG/2 ML VIAL. ONE (10:59)
[2020-11-09] MEDS ORDERED: VERAPAMIL 5 MG/2 ML VIAL. ONE (10:59)
[2020-11-09] MEDS ORDERED: NITROGLYCERIN 200 MCG/2 ML SYRINGE FOR CATH/VASC LAB. ONE (11:01)
--- NOTE | 2020-11-09 11:13 | PDOC ---
MODERATE SEDATION ASSESSMENT RISKS/ALTERNATIVES Risks/Alternatives Risks and alternatives of this type of sedation and procedure discussed with: RISK/ALTERNATIVES: Patient H & P ON CHART H & P H & P on chart and reviewed for co-morbid conditions and appropriate labs. H&P ON CHART: Yes STATUS PREG STATUS ASSESSED: N/A MEDS/ALLERGIES REVIEWED Meds/Allergies Reviewed Medications and Allergies including time and route of recently administered narcotics and sedatives. MEDS/ALLERGIES REVIEWED: Yes ASA RATING ASA RATING: II AIRWAY ASSESSMENT Airway Assessment Airway patency, oral function limitations, presence of caps, crowns, dentures, partials, and ability to extend neck assessed. AIRWAY ASSESSMENT: Yes MALLAMPATI SCORE MALLAMPATI SCORE: II PRE-SEDATION ASSESSMENT PRE-SEDATION ASSESSMENT: Yes JORGE LOERA MD Nov 09, 2020 11:13
[2020-11-09] MEDS ORDERED: CONTRAST GIVEN. MC PRN (11:30)
[2020-11-09] MEDS ORDERED: NITROGLYCERIN 200 MCG/2 ML SYRINGE FOR CATH/VASC LAB. IART ONE (11:30)
[2020-11-09] MEDS ORDERED: fentaNYL PF VIAL 100 MCG/2 ML VIAL IV ONE (11:30)
[2020-11-09] MEDS ORDERED: HEPARIN for IV BOLUS 10,000 UNIT/10 ML VIAL. IART ONE (11:30)
[2020-11-09] MEDS ORDERED: IODIXANOL 320 MG/ML 100 ML VIAL. IART ONE (11:30)
[2020-11-09] MEDS ORDERED: MIDAZOLAM HCL/PF 2 MG/2 ML VIAL. IV ONE (11:30)
[2020-11-09] MEDS ORDERED: VERAPAMIL 5 MG/2 ML VIAL. IART ONE (11:30)
[2020-11-09] MEDS ORDERED: LIDOCAINE 1% PF 2 ML VIAL. INJ ONE (11:30)
--- NOTE | 2020-11-09 11:34 | PDOC ---
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 Mason, is a 29-year-old male admit with acute chest pain 11/07/2020 overnight he was droppign off his daughter, age 7 at her mothers house, , then driving home and had severe acute chest pain. was 9/10 pain, beter now, pain to left chest radiate to arm and maybe neck. better now was tachy and has some flat EKG change, t wave inversions heart score is 2. small troponin increase noted, Admitted CT angio neg for PE 11/08: Troponin up to 1.8. he feels well,. is nervous about posscath in AM. pain is better, gone. he has eaten, no complaints NPO for cardiac cath today. Put on amlodipine 10 mg daily 200 mg labetalol added for blood pressure 223/158. Creatinine improved from 1.7-1.3. Overall his pain is resolved he feels improved. Vitals/I&O Vitals/I&O: Vital Signs Date Time Temp Pulse Resp B/P (MAP) Pulse Ox O2 Delivery O2 Flow Rate FiO2 11/09/20 11:00 98.3 90 18 141/93 (109) 97 Room Air 98.3 I & O 11/08/20 11/08/20 11/09/20 15:00 23:00 07:00 Intake Total 400 ml 1220 ml 700 ml Output Total 500 ml 375 ml 600 ml Balance -100 ml 845 ml 100 ml Physical Exam General: Alert, Oriented X3, Cooperative Heart: Regular rate, Normal S1 Lungs: Clear Abdomen: Soft Extremities: No cyanosis, No edema Skin: No breakdown Labs Labs: Laboratory Tests Test 11/09/20 07:05 White Blood Count 7.9 x10^3/uL (4.0-11.0) Red Blood Count 5.22 x10^6/uL (4.30-5.70) Hemoglobin 13.7 g/dL (13.0-17.5) Hematocrit 42.0 % (39.0-53.0) Mean Corpuscular Volume 80 fL (79-100) Mean Corpuscular Hemoglobin 26 pg (25-35) Mean Corpuscular Hemoglobin Concent 33 g/dL (31-37) Red Cell Distribution Width 14.2 % (11.5-14.5) Platelet Count 278 x10^3/uL (140-400) Neutrophils (%) (Auto) 66 % (31-73) Lymphocytes (%) (Auto) 23 % (24-48) Monocytes (%) (Auto) 8 % (0-9) Eosinophils (%) (Auto) 2 % (0-3) Basophils (%) (Auto) 1 % (0-3) Neutrophils # (Auto) 5.3 x10^3/uL (1.8-7.7) Lymphocytes # (Auto) 1.8 x10^3/uL (1.0-4.8) Monocytes # (Auto) 0.7 x10^3/uL (0.0-1.1) Eosinophils # (Auto) 0.1 x10^3/uL (0.0-0.7) Basophils # (Auto) 0.1 x10^3/uL (0.0-0.2) Heparin Anti-Xa Act, Unfractionated 0.56 IU/mL (0.30-0.70) Sodium Level 139 mmol/L (136-145) Potassium Level 3.6 mmol/L (3.5-5.1) Chloride Level 104 mmol/L (98-107) Carbon Dioxide Level 24 mmol/L (21-32) Anion Gap 11 (6-14) Blood Urea Nitrogen 10 mg/dL (8-26) Creatinine 1.3 mg/dL (0.7-1.3) Estimated GFR (Cockcroft-Gault) 79.0 BUN/Creatinine Ratio 8 (6-20) Glucose Level 95 mg/dL (70-99) Calcium Level 9.2 mg/dL (8.5-10.1) Total Bilirubin 1.2 mg/dL (0.2-1.0) Aspartate Amino Transf (AST/SGOT) 19 U/L (15-37) Alanine Aminotransferase (ALT/SGPT) 23 U/L (16-63) Alkaline Phosphatase 86 U/L (46-116) Total Protein 6.8 g/dL (6.4-8.2) Albumin 3.0 g/dL (3.4-5.0) Albumin/Globulin Ratio 0.8 (1.0-1.7) Assessment and Plan Assessmemt and Plan Problems Medical Problems: (1) Chest pain Status: Acute (2) Ground glass opacity present on imaging of lung Status: Acute (3) NSTEMI (non-ST elevated myocardial infarction) Status: Acute Comment Review of Relevant I have reviewed the following items danae (where applicable) has been applied. Medications: Current Medications Medications (Trade) Dose Ordered Sig/Hernandez Route PRN Reason Start Time Stop Time Status Last Admin Dose Admin Potassium Chloride (Klor-Con) 40 meq 1X ONCE PO 11/08/20 11:45 11/08/20 11:46 DC 11/08/20 12:09 Justifications for Admission Other Justification CHA RICE MD Nov 09, 2020 11:34
--- NOTE | 2020-11-09 11:58 | CARD ---
MR#: [id number] Date of Study: 11/09/2020 Ordering Physician: JORGE BENÍTEZ, Referring Physician: JORGE BENÍTEZ, Tech: RT Mandy(R) APPROVED REPORT Technologist: RT Mandy(R) Nurse: Kera Stringer RN Procedure(s) performed: Left heart catheterization, selective coronary angiography and left ventricul ography via right transradial approach FL TIME: 3.7 MINS DOSE: 71 GYCM2 CONTRAST: 125 ML MODERATE SEDATION: 23 MINS INDICATION The indication(s) include : non-STEMI . [facility] Clinical Frailty Scale [facility] Clinical Frailty Scale: Managing Well Heart Failure Heart Failure: No CASE TECHNIQUE IV conscious sedation was used throughout procedure with appropriate monitoring and was performed in the presence of a registered nurse who was an independent trained observer other than the physician p erforming the procedure. During this case, Fluoroscopy and low osmolar contrast were used for imaging . Specimen(s) Removed: No Estimated Blood loss: 15 cc's. PROCEDURE NARRATIVE After explaining the risks, benefits and alternative options, informed consent was obtained from camilla ent. Patient was brought to the cardiac [facility] and right wrist was prepped and draped in the usual fashion after confirming a positive modified Jaun's test. Arterial access was obtained in the righ t radial artery and a 6 Cymro sheath was inserted. 6 Cymro Po catheter was used to perform jose ramon ective angiography of the left and right coronary arteries. 6 Cymro pigtail catheter was used to pe rform left ventriculography. Patient tolerated the procedure well. Hemostasis was achieved using TR band. There were no immediate complications. The following findings were noted. FINDINGS 1. Hemodynamics: Left ventricular end-diastolic pressure of 20 mmHg. No pullback gradient across th e aortic valve. 2. Left ventriculography: Moderate left ventricular systolic dysfunction with ejection fraction mell mated at 35%. No significant mitral regurgitation seen. 3. Coronary angiography: a. The left main coronary artery arose from the left sinus of Valsalva, gave rise to the left anteri or descending and left circumflex arteries and did not show any significant stenosis. b. The left anterior descending artery did not show any significant stenosis. c. The left circumflex artery did not show any significant stenosis. d. The right coronary artery was a large and dominant vessel arising from the right sinus of Valsalv a that did not show any significant stenosis. Conclusion 1. No significant coronary artery disease 2. Moderate left ventricular systolic dysfunction with ejection fraction estimated at 35% Recommendations Optimization of medical therapy for nonischemic cardiomyopathy and repeat 2D echo in 3 months. Signed by : Jorge Benítez, Electronically Approved : 11/09/2020 11:57:55
--- NOTE | 2020-11-09 13:00 | NUR ---
SS following for discharge planning. SS reviewed pt chart and discussed with pt RN. Pt is from home and is currently on room air. COVID19 negative. Cardiology following. Pt had heart cath today. SS will continue to follow for discharge planning.
[2020-11-09] MEDS: POTASSIUM CHLORIDE 20 MEQ TABLET.ER. PO SCH (13:02)
[2020-11-09] MEDS: LOSARTAN POTASSIUM 50 MG TABLET. PO SCH (13:02)
[2020-11-09] MEDS: ACETAMINOPHEN 325 MG TABLET. PO PRN ×2 (13:03→20:25)
--- NOTE | 2020-11-09 16:21 | CARD ---
MR#: [id number] Date of Study: 11/09/2020 Ordering Physician: JORGE LOERA, Referring Physician: JORGE LOERA, Tech: Hilaria Dos Santos, [facility] APPROVED REPORT EXAM: Two-dimensional and M-mode echocardiogram with Doppler and color Doppler. Other Information Quality : AverageHR: 88bpm INDICATION Dyspnea Non STEMI 2D DIMENSIONS RVDd2.9 (2.9-3.5cm)Left Atrium(2D)3.5 (1.6-4.0cm) IVSd1.7 (0.7-1.1cm)Aortic Root(2D)3.2 (2.0-3.7cm) LVDd6.1 (3.9-5.9cm)LVOT Diameter2.1 (1.8-2.4cm) PWd1.9 (0.7-1.1cm)LVDs4.8 (2.5-4.0cm) FS (%) 22.6 %SV84.9 ml LVEF(%)44.7 (>50%) Aortic Valve AoV Peak Vamsi.103.0cm/sAoV VTI19.1cm AO Peak GR.4.2mmHgLVOT VTI 10.92cm AO Mean GR.3mmHg Mitral Valve MV E Jdkqcpxw432.8cm/sMV E Peak Gr.4mmHg MV DECEL [id number] A Sawyztra55.3cm/s MV E Mean Gr.3mmHgE/A Ratio2.1 TDI Lateral E' P. V7.72cm/sMedial E' P. V5.60cm/s E/Lateral E'13.4E/Medial E'18.5 Tricuspid Valve TR P. Zenvfxss310kz/sRAP [id number] TR Peak Gr.61uwReVPYR61cuIr LEFT VENTRICLE The Left Ventricle is mildly dilated. There is severe concentric left ventricular hypertrophy. The sy stolic function is moderately impaired. EF 30% There is severe global hypokinesis of the left ventric le. The left ventricular diastolic function and filling is normal for age. RIGHT VENTRICLE The right ventricle is mildly dilated. There is normal right ventricular wall thickness. The right ve ntricular systolic function is normal. ATRIA The left atrium is borderline dilated. The right atrium is mildly dilated. The interatrial septum is intact with no evidence for an atrial septal defect or patent foramen ovale as noted on 2-D or Dopple r imaging. AORTIC VALVE The aortic valve is normal in structure and function. Doppler and Color Flow revealed trace aortic re gurgitation. There is no significant aortic valvular stenosis. Calculated aortic valve area is 1.95 c m2 with maximum pressure gradient of 6 mmHg and mean pressure gradient of 4 mmHg. MITRAL VALVE The mitral valve is normal in structure and function. There is no evidence of mitral valve prolapse. There is no mitral valve stenosis with a mean gradient of 2.54 mmHg. TRICUSPID VALVE The tricuspid valve is normal in structure and function. Doppler and Color Flow revealed trace tricus pid regurgitation with an estimated PAP of 22 mmHg. There is no tricuspid valve stenosis. PULMONIC VALVE Doppler and Color Flow revealed trace to mild pulmonic valvular regurgitation. There is no pulmonic v alvular stenosis. GREAT VESSELS The aortic root is normal in size. The IVC is normal in size and collapses >50% with inspiration. PERICARDIAL EFFUSION There is no evidence of significant pericardial effusion. Critical Notification Critical Value: No <Conclusion> The systolic function is moderately impaired. EF 30% There is severe global hypokinesis of the left ventricle. There is severe concentric left ventricular hypertrophy. Signed by : Joel Lane, Electronically Approved : 11/09/2020 16:20:43
[2020-11-09] MEDS: CARVEDILOL 12.5 MG TABLET. PO SCH (17:50)
[2020-11-10 02:50] VITALS: BP 169/106
[2020-11-10 07:29] LABS: CALCIUM 9.2 mg/dL (8.5-10.1); CREATININE 1.5 mg/dL (0.7-1.3); GFR 66.9; POTASSIUM 3.8 mmol/L (3.5-5.1)
[2020-11-10 07:30] VITALS: BP 168/113
[2020-11-10] MEDS: POTASSIUM CHLORIDE 20 MEQ TABLET.ER. PO SCH (09:07)
[2020-11-10] MEDS: LOSARTAN POTASSIUM 50 MG TABLET. PO SCH (09:08)
[2020-11-10] MEDS: CARVEDILOL 12.5 MG TABLET. PO SCH ×2 (09:08→16:29)
--- NOTE | 2020-11-10 09:43 | PDOC ---
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 Mason, is a 29-year-old male admit with acute chest pain 11/07/2020 overnight he was dropping off his daughter, age 7 at her mothers house, , then driving home and had severe acute chest pain. was 9/10 pain, beter now, pain to left chest radiate to arm and maybe neck. better now was tachy and has some flat EKG change, t wave inversions heart score is 2. small troponin increase noted, Admitted CT angio neg for PE. He works to [employer] and has a rather sedentary lifestyle. 11/08: Troponin up to 1.8. he feels well,. is nervous about posscath in AM. pain is better, gone. he has eaten, no complaints 11/09: Negative cardiac cath today. Put on amlodipine 10 mg daily 200 mg lab etalol added for blood pressure 223/158. Creatinine improved from 1.7-1.3. Overall his pain is resolved. EF 35% on cardiac catheterization. Changed Coreg to labetalol continue uncertain given his renal artery duplex was within normal limits. Max amlodipine, added imdur Vitals/I&O Vitals/I&O: Vital Signs Date Time Temp Pulse Resp B/P (MAP) Pulse Ox O2 Delivery O2 Flow Rate FiO2 11/10/20 09:08 87 168/113 11/10/20 07:30 98.6 18 94 Room Air 98.6 11/09/20 11:37 2.0 I & O 11/09/20 11/09/20 11/10/20 15:00 23:00 07:00 Intake Total 400 ml 250 ml 400 ml Output Total 500 ml Balance -100 ml 250 ml 400 ml Physical Exam General: Alert, Oriented X3, Cooperative Heart: Regular rate, Normal S1 Lungs: Clear Abdomen: Soft Extremities: No cyanosis, No edema Skin: No breakdown Labs Labs: Laboratory Tests Test 11/10/20 05:55 Sodium Level 138 mmol/L (136-145) Potassium Level 3.8 mmol/L (3.5-5.1) Chloride Level 105 mmol/L (98-107) Carbon Dioxide Level 25 mmol/L (21-32) Anion Gap 8 (6-14) Blood Urea Nitrogen 10 mg/dL (8-26) Creatinine 1.5 mg/dL (0.7-1.3) Estimated GFR (Cockcroft-Gault) 66.9 Glucose Level 82 mg/dL (70-99) Calcium Level 9.2 mg/dL (8.5-10.1) Assessment and Plan Assessmemt and Plan Problems Medical Problems: (1) Chest pain Status: Acute (2) Ground glass opacity present on imaging of lung Status: Acute (3) NSTEMI (non-ST elevated myocardial infarction) Status: Acute Comment Review of Relevant I have reviewed the following items danae (where applicable) has been applied. Medications: Current Medications Medications (Trade) Dose Ordered Sig/Hernandez Route PRN Reason Start Time Stop Time Status Last Admin Dose Admin Nitroglycerin (Nitroglycerin) 200 mcg 1X ONCE IART 11/09/20 11:30 11/09/20 11:33 DC 11/09/20 11:31 Verapamil HCl (Verapamil) 2.5 mg 1X ONCE IART 11/09/20 11:30 11/09/20 11:33 DC 11/09/20 11:32 Heparin Sodium (Porcine) (Heparin Sodium) 2,500 unit 1X ONCE IART 11/09/20 11:30 11/09/20 11:33 DC 11/09/20 11:33 Heparin Sodium/ Sodium Chloride (HEPARIN for ARTERIAL LINE FLUSH) 1,000 unit 1X ONCE IART 11/09/20 11:30 11/09/20 11:33 DC 11/09/20 11:31 Midazolam HCl (Versed) 2 mg 1X ONCE IV 11/09/20 11:30 11/09/20 11:33 DC 11/09/20 11:32 Fentanyl Citrate (Fentanyl 2ml Vial) 100 mcg 1X ONCE IV 11/09/20 11:30 11/09/20 11:33 DC 11/09/20 11:33 Iodixanol (Visipaque 320) 100 ml 1X ONCE IART 11/09/20 11:30 11/09/20 11:33 DC 11/09/20 11:31 Lidocaine HCl (Xylocaine-Mpf 1% 2ml Vial) 1 ml 1X ONCE INJ 11/09/20 11:30 11/09/20 11:33 DC 11/09/20 11:32 Losartan Potassium (Cozaar) 50 mg DAILY PO 11/09/20 12:00 11/10/20 09:08 Carvedilol (Coreg) 25 mg BIDWMEALS PO 11/09/20 17:15 11/10/20 09:08 Justifications for Admission Other Justification CHA RICE MD Nov 10, 2020 09:43
[2020-11-10] MEDS ORDERED: ISOSORBIDE MONONITRATE ER 30 MG TAB.ER.24H PO SCH (09:45)
[2020-11-10 11:00] VITALS: BP 143/97
[2020-11-10] MEDS ORDERED: ISOS30TA68 PO (11:00)
[2020-11-10] MEDS ORDERED: AMLO-187 PO (11:00)
[2020-11-10] MEDS ORDERED: CARV25TA2 PO (11:00)
[2020-11-10] MEDS ORDERED: LOSA-73 PO (11:00)
[2020-11-10] MEDS ORDERED: ASPI-886 PO (11:06)
[2020-11-10] MEDS ORDERED: ATOR10TA60 PO (11:06)
--- NOTE | 2020-11-10 11:07 | PDOC3 ---
Discharge Summary Visit Information Date of Admission: Nov 07, 2020 Date of Discharge: Nov 10, 2020 Admitting Diagnosis: Chest pain Final Diagnosis Problems Medical Problems: (1) Chest pain Status: Acute (2) Ground glass opacity present on imaging of lung Status: Acute (3) NSTEMI (non-ST elevated myocardial infarction) Status: Acute Brief Hospital Course Allergies Allergies Coded Allergies Type Severity Reaction Last Updated Verified No Known Drug Allergies 11/07/20 No Vital Signs Vital Signs Date Time Temp Pulse Resp B/P (MAP) Pulse Ox O2 Delivery O2 Flow Rate FiO2 11/10/20 09:08 87 168/113 11/10/20 08:00 Room Air 11/10/20 07:30 98.6 18 94 98.6 11/09/20 11:37 2.0 Lab Results Laboratory Tests Test 11/09/20 07:05 11/10/20 05:55 White Blood Count 7.9 x10^3/uL (4.0-11.0) Red Blood Count 5.22 x10^6/uL (4.30-5.70) Hemoglobin 13.7 g/dL (13.0-17.5) Hematocrit 42.0 % (39.0-53.0) Mean Corpuscular Volume 80 fL (79-100) Mean Corpuscular Hemoglobin 26 pg (25-35) Mean Corpuscular Hemoglobin Concent 33 g/dL (31-37) Red Cell Distribution Width 14.2 % (11.5-14.5) Platelet Count 278 x10^3/uL (140-400) Neutrophils (%) (Auto) 66 % (31-73) Lymphocytes (%) (Auto) 23 % (24-48) Monocytes (%) (Auto) 8 % (0-9) Eosinophils (%) (Auto) 2 % (0-3) Basophils (%) (Auto) 1 % (0-3) Neutrophils # (Auto) 5.3 x10^3/uL (1.8-7.7) Lymphocytes # (Auto) 1.8 x10^3/uL (1.0-4.8) Monocytes # (Auto) 0.7 x10^3/uL (0.0-1.1) Eosinophils # (Auto) 0.1 x10^3/uL (0.0-0.7) Basophils # (Auto) 0.1 x10^3/uL (0.0-0.2) Heparin Anti-Xa Act, Unfractionated 0.56 IU/mL (0.30-0.70) Sodium Level 139 mmol/L (136-145) 138 mmol/L (136-145) Potassium Level 3.6 mmol/L (3.5-5.1) 3.8 mmol/L (3.5-5.1) Chloride Level 104 mmol/L (98-107) 105 mmol/L (98-107) Carbon Dioxide Level 24 mmol/L (21-32) 25 mmol/L (21-32) Anion Gap 11 (6-14) 8 (6-14) Blood Urea Nitrogen 10 mg/dL (8-26) 10 mg/dL (8-26) Creatinine 1.3 mg/dL (0.7-1.3) 1.5 mg/dL (0.7-1.3) Estimated GFR (Cockcroft-Gault) 79.0 66.9 BUN/Creatinine Ratio 8 (6-20) Glucose Level 95 mg/dL (70-99) 82 mg/dL (70-99) Calcium Level 9.2 mg/dL (8.5-10.1) 9.2 mg/dL (8.5-10.1) Total Bilirubin 1.2 mg/dL (0.2-1.0) Aspartate Amino Transf (AST/SGOT) 19 U/L (15-37) Alanine Aminotransferase (ALT/SGPT) 23 U/L (16-63) Alkaline Phosphatase 86 U/L (46-116) YM-Xip-[id number]-Type Natriuretic Peptide 3840 pg/mL (0-124) Total Protein 6.8 g/dL (6.4-8.2) Albumin 3.0 g/dL (3.4-5.0) Albumin/Globulin Ratio 0.8 (1.0-1.7) Laboratory Tests Test 11/10/20 05:55 Sodium Level 138 mmol/L (136-145) Potassium Level 3.8 mmol/L (3.5-5.1) Chloride Level 105 mmol/L (98-107) Carbon Dioxide Level 25 mmol/L (21-32) Anion Gap 8 (6-14) Blood Urea Nitrogen 10 mg/dL (8-26) Creatinine 1.5 mg/dL (0.7-1.3) Estimated GFR (Cockcroft-Gault) 66.9 Glucose Level 82 mg/dL (70-99) Calcium Level 9.2 mg/dL (8.5-10.1) Brief Hospital Course Mr. Mason, is a 29-year-old male admit with acute chest pain 11/07/2020 overnight he was dropping off his daughter, age 7 at her mothers house, , then driving home and had severe acute chest pain. was 9/10 pain, beter now, pain to left chest radiate to arm and maybe neck. better now was tachy and has some flat EKG change, t wave inversions heart score is 2. small troponin increase noted, Admitted CT angio neg for PE. He works to [employer] and has a rather sedentary lifestyle. 11/08: Troponin up to 1.8. he feels well,. is nervous about posscath in AM. pain is better, gone. he has eaten, no complaints 11/09: Negative cardiac cath today. Put on amlodipine 10 mg daily 200 mg labetalol added for blood pressure 223/158. Creatinine improved from 1.7-1.3. Overall his pain is resolved. EF 35% on cardiac catheterization. Changed Coreg to labetalol continue uncertain given his renal artery duplex was within normal limits. Max amlodipine, added imdur. Echo with LVH and EF ~30%. Consults: Cardiology Problem list: Acute chest pain - ruled out ACS Hypertensive emergency - renal doppler negative. 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 Greater than 30 minutes spent on d/c home Discharge Information Condition at Discharge: Improved Follow Up: Weeks (1) Disposition/Orders: D/C to Home Scheduled Amlodipine Besylate (Amlodipine Besylate) 10 Mg Tablet, 10 MG PO DAILY for HTN for 30 Days, #30 Ref 5 Prescribed by: CHA RICE MD on 11/10/201099 Carvedilol (Carvedilol) 25 Mg Tablet, 25 MG PO BIDWMEALS for CARDIAC for 30 Days, #60 Ref 5 Prescribed by: CHA RICE MD on 11/10/20 1100 Info (No Known Medications Prior To Admisstion) Each, 1 EACH 1X for none, ( Reported) Entered as Reported by: ELI LAWSON on 11/07/20518 Last Action: New Order on 11/07/20518 by ELI ALWSON Isosorbide Mononitrate (Isosorbide Mononitrate Er) 30 Mg Tab.er.24h, 30 MG PO DAILY for HTN/CHF for 30 Days, #30 Ref 5 Prescribed by: CHA RICE MD on 11/10/201099 Losartan Potassium (Cozaar ) 50 Mg Tablet, 50 MG PO DAILY for HTN for 30 Days, #30 Ref 2 Prescribed by: CHA RICE MD on 11/10/201099 Justicifation of Admission Dx: Justifications for Admission: Justification of Admission Dx: Yes CHF: Hemodynamic Instability CHA RICE MD Nov 10, 2020 11:07
--- NOTE | 2020-11-10 11:59 | NUR ---
SS following up with discharge planning. SS reviewed pt chart and discussed with pt RN. Pt is currently on room air. COVID19 negative. Pt had heart cath on 11/09/2020. Discharge order on the chart for home with self care.
--- NOTE | 2020-11-10 12:05 | PDOC ---
AMELIA MEADOWS WIRING TECHNICIAN 11/10/20 1205: CARDIO Progress Notes Date and Time Date of Service 11/10/20 Time of Evaluation 1200 Subjective Subjective: No Chest Pain, No shortness of breath, No Palpitations Vitals Vitals Vital Signs Date Time Temp Pulse Resp B/P (MAP) Pulse Ox O2 Delivery O2 Flow Rate FiO2 11/10/20 11:48 88 143/97 11/10/20 11:00 98.5 18 96 Room Air 98.5 11/09/20 11:37 2.0 Weight Weight [ ] Input and Output Intake and Output Intake and Output 11/10/20 07:00 Intake Total 1050 ml Output Total 500 ml Balance 550 ml Intake Oral 1050 ml Output Urine Total 500 ml Laboratory Labs Laboratory Tests Test 11/10/20 05:55 Sodium Level 138 mmol/L (136-145) Potassium Level 3.8 mmol/L (3.5-5.1) Chloride Level 105 mmol/L (98-107) Carbon Dioxide Level 25 mmol/L (21-32) Anion Gap 8 (6-14) Blood Urea Nitrogen 10 mg/dL (8-26) Creatinine 1.5 mg/dL (0.7-1.3) Estimated GFR (Cockcroft-Gault) 66.9 Glucose Level 82 mg/dL (70-99) Calcium Level 9.2 mg/dL (8.5-10.1) Physical Exam HEENT: Neck Supple W Full Motion Chest: Symmetric LUNGS: Clear to Auscultation Heart: S1S2, RRR Abdomen: Soft N/T Extremities: No Edema Neurology: alert, oriented, follow commands Assessment Assessment 1. Non-STEMI; type II, demand CP free. Cath did not show any significant CAD 2. Non-ischemic cardiomyopathy; Echo with LVEF 30% 3. Accelerated hypertension; better controlled 4. Hyperlipidemia; statin 5. NEVILLE; better Recommendations Secondary prevention ASA, statin therapy HF optimization with Coreg, losartan Supportive care Follow up in our office with Dr. Benítez as scheduled Repeat echo in 3 months to evaluate LV systolic function Justicifation of Admission Dx: Justifications for Admission: Justification of Admission Dx: Yes CHF: Hemodynamic Instability JORGE BENÍTEZ MD 11/10/20 0759: CARDIO Progress Notes Assessment Assessment Patient seen and examined. Agree with AMBULATORY ANALYST's assessment and plan. NSTEMI without any significant CAD on cath Ac on chr syst HF better compensated. EF 30% on echo BP better controlled Plan repeat echo in 3 mos. Continue current meds. F/U as scheduled AMELIA MEADOWS APRN Nov 10, 2020 12:05 JORGE BENÍTEZ MD Nov 10, 2020 21:55
[2020-11-10 13:40] LABS: CHOLESTEROL/HDL RATIO 5.5
[2020-11-10 15:00] VITALS: BP 143/93
[2020-11-10 16:29] VITALS: BP 143/93
--- NOTE | 2020-11-10 17:30 | NUR ---
Discharge Note: [facility] Discharge instructions and discharge home medications reviewed with Patient and a copy given. All questions have been answered and understanding verbalized. The following instructions and handouts were given: Hypertension, Cardiac Diet, Amlodipine, Losartan, Carvedilol, Imdur, Atorvastatin, Aspirin Discontinued lines and drains: Peripheral IV intact. Patient discharged to Home or Self Care with Self via Wheelchair
== END 2020-11-10 17:30 | disposition home or self-care (01) | DRG 286 ==
LOC: ER 00:27 → 6 SOUTH 04:05
PROVIDERS: ADMIT Internal Medicine; ATTEND Internal Medicine
PROC: 4A023N7 Measurement of Cardiac Sampling and Pressure, Left Heart, Percutaneous Approach (ICD-10-PCS; principal; 2020-11-09)
PROC: B2111ZZ Fluoroscopy of Multiple Coronary Arteries using Low Osmolar Contrast (ICD-10-PCS; 2020-11-09)
PROC: B2151ZZ Fluoroscopy of Left Heart using Low Osmolar Contrast (ICD-10-PCS; 2020-11-09)
DX: I16.1 Hypertensive emergency (principal); N17.0 Acute kidney failure with tubular necrosis; I50.23 Acute on chronic systolic (congestive) heart failure; I47.2 Ventricular tachycardia; Z68.42 Body mass index [BMI] 45.0-49.9, adult; I42.8 Other cardiomyopathies; I11.0 Hypertensive heart disease with heart failure; E66.9 Obesity, unspecified; E78.5 Hyperlipidemia, unspecified; I15.9 Secondary hypertension, unspecified; M79.7 Fibromyalgia; Z79.899 Other long term (current) drug therapy; Z20.822 Contact with and (suspected) exposure to COVID-19; R07.89 Other chest pain
CPT/HCPCS: 36415; 71045; 71275; 80048; 80053; 80061; 80307; 81001; 83735; 83880; 84484; 85025; 85379; 85520; 87426; 93005; 93306; 93458; 93975; 96374; 99152; 99153; C1894; J1644; J2250; J3010; J3490; J7030; Q9967; U0003; U0005; 99285-25; G0378